=== PATIENT | male | born 1980 | race Caucasian/White ===

== ENCOUNTER 2020-02-12 17:30 | Emergency (ER) | payer OTHER ==
[2020-02-12 18:51] LABS: Basophils % 1.4 % (0-1.3); Hematocrit 42.1 % (39.6-49.0); Lymphocytes % 27.7 % (15.3-44.8); MPV 9.3 fL (7.6-11.3); RBC Red Blood Cell Count 5.47 M/uL (4.33-5.43)
[2020-02-12 19:10] LABS: BUN Blood Urea Nitrogen 16 mg/dL (7-18); Bicarbonate 27 mmol/L (21-32); Glucose Level 255 mg/dL (74-106); NT PRO-BNP 191 pg/mL (<125); Sodium Level 138 mmol/L (136-145); Troponin (Emerg Dept Use Only) 0.02 ng/mL (0.0-0.045)
[2020-02-12] MEDS ORDERED: NA CHLORIDE 0.9% 1,000 ML ONE (20:30)
--- NOTE | 2020-02-12 21:16 | EDPHYS ---
Physician Documentation [facility] Name: Ridge Montgomery Age: 39 yrs Sex: Male : 1980 Arrival Date: 02/12/2020 Time: 17:38 Bed 7 Private MD: ED Physician Archie Munguia HPI: 02/11 18:13 This 39 yrs old Male presents to ER via Ambulatory with complaints of kdr Abnormal EKG. 18:13 The patient had presented to [facility] for RTW clearance and he was noted to have and kdr irregular pulse and an abnormal EKG - he was sent to the ED for further evaluation. He denies any cardiac or pulmonary s/s. He was needing clearance for RTW for a prior ankle injury. Though he had had the ankle injury, he denied any increased immobility that would have suggested a possible PE. He states that he rides bike and walks and has never had any limitation beyond what he normally expected due to retirement lack of exercise and conditioning. He does not have a family history that might suggest a cardiac abnormality. He had been a pack a week smoker until four months ago. He is otherwise not on any medications or have any other risk factors for cardiopulmonary disease. Onset: The symptoms/episode began/occurred at an unknown time. Severity of symptoms: At their worst the symptoms were None - denies any s/s of cardiopulmonary compromise. The patient has not experienced similar symptoms in the past. The patient has been recently seen by a physician: Sarah MIRANDA for RTW. Historical: - Allergies: 17:52 No Known Allergies; ll1 - PMHx: 17:52 None; ll1 - PSHx: 17:52 None; ll1 - Social history:: Smoking status: Patient denies any tobacco usage or history of. Patient/guardian denies using street drugs, tobacco products. ROS: 18:13 Constitutional: Negative for fever, chills, and weight loss, Eyes: Negative for injury, kdr pain, redness, and discharge, ENT: Negative for injury, pain, and discharge, Neck: Negative for injury, pain, and swelling, Cardiovascular: Negative for chest pain, palpitations, and edema, Respiratory: Negative for shortness of breath, cough, wheezing, and pleuritic chest pain, Abdomen/GI: Negative for abdominal pain, nausea, vomiting, diarrhea, and constipation, Back: Negative for injury and pain, : Negative for injury, bleeding, discharge, and swelling, MS/Extremity: Negative for injury and deformity, Skin: Negative for injury, rash, and discoloration, Neuro: Negative for headache, weakness, numbness, tingling, and seizure activity. Psych: Negative for depression, anxiety, suicide ideation, homicidal ideation, and hallucinations, Allergy/Immunology: Negative for hives, rash, and allergies, Endocrine: Negative for neck swelling, polydipsia, polyuria, polyphagia, and marked weight changes, Hematologic/Lymphatic: Negative for swollen nodes, abnormal bleeding, and unusual bruising. Exam: 18:13 Constitutional: This is a well developed, well nourished patient who is awake, alert, kdr and in no acute distress. Head/Face: Normocephalic, atraumatic. Eyes: Pupils equal round and reactive to light, extra-ocular motions intact. Lids and lashes normal. Conjunctiva and sclera are non-icteric and not injected. Cornea within normal limits. Periorbital areas with no swelling, redness, or edema. Neck: Trachea midline, no thyromegaly or masses palpated, and no cervical lymphadenopathy. Supple, full range of motion without nuchal rigidity, or vertebral point tenderness. No Meningismus. Chest/axilla: Normal chest wall appearance and motion. Nontender with no deformity. No lesions are appreciated. Respiratory: Lungs have equal breath sounds bilaterally, clear to auscultation and percussion. No rales, rhonchi or wheezes noted. No increased work of breathing, no retractions or nasal flaring. Abdomen/GI: Soft, non-tender, with normal bowel sounds. No distension or tympany. No guarding or rebound. No evidence of tenderness throughout. Back: No spinal tenderness. No costovertebral tenderness. Full range of motion. Skin: Warm, dry with normal turgor. Normal color with no rashes, no lesions, and no evidence of cellulitis. MS/ Extremity: Pulses equal, no cyanosis. Neurovascular intact. Full, normal range of motion. Neuro: Awake and alert, GCS 15, oriented to person, place, time, and situation. Cranial nerves II-XII grossly intact. Motor strength 5/5 in all extremities. Sensory grossly intact. Cerebellar exam normal. Normal gait. Psych: Awake, alert, with orientation to person, place and time. Behavior, mood, and affect are within normal limits. 18:13 Cardiovascular: Rate: His resting rate was less than 100 but he came tachycardic to 110-120 with exertion. He denies any CP, SOB. Vital Signs: 17:49 BP 156 / 84; Pulse 70; Resp 18; Temp 98.0; Pulse Ox 97% ; Pain 0/10; ll1 18:38 BP 150 / 89; Pulse 51; Resp 18; Temp 98.2; Pulse Ox 97% on R/A; mh5 19:10 BP 118 / 76; Pulse 103; Resp 19; Pulse Ox 95% ; ah 19:55 BP 123 / 63; Pulse 104; Resp 20; Pulse Ox 95% ; ah 20:20 BP 146 / 76; Pulse 106; Resp 18; Pulse Ox 97% ; ea 21:05 BP 131 / 87; Pulse 98; Resp 18; Pulse Ox 97% ; ea MDM: 18:13 Data reviewed: vital signs, nurses notes, lab test result(s), EKG, radiologic studies. kdr Counseling: I had a detailed discussion with the patient and/or guardian regarding: the historical points, exam findings, and any diagnostic results supporting the discharge/admit diagnosis, lab results, radiology results, the need for outpatient follow up. 21:12 Differential Diagnosis arrythmia , dehydration, anxiety. Data interpreted: Pulse tw4 oximetry: Interpretation: normal. Medication response: IVF hydration. Response to treatment: the patient's symptoms have resolved after treatment, the patient is not tachycardic, and as a result, I will discharge patient. Special discussion: I discussed with the patient/guardian in detail that at this point there is no indication for admission to the hospital. It is understood, however, that if the symptoms persist or worsen the patient needs to return immediately for re-evaluation. 21:15 Patient medically screened. 02/11 18:11 Order name: Basic Metabolic Panel; Complete Time: 20:22 kdr 02/11 20:22 Interpretation: Normal except: GLUC 255. 02/11 18:11 Order name: CBC with Diff; Complete Time: 20:22 kdr 02/11 20:22 Interpretation: Normal except: RBC 5.47; HGB 13.5; MCV 77.0; MCH 24.8; RDW 15.7; BASO% tw4 1.4. 02/11 18:11 Order name: Magnesium; Complete Time: 20:22 [facility] 02/11 20:23 Interpretation: Within normal limits: MG 2.0. [facility] 02/11 18:11 Order name: NT PRO-BNP; Complete Time: 20:22 [facility] 02/11 20:23 Interpretation: Normal except: NT PRO-BNP 191. [facility] 02/11 18:11 Order name: Troponin (emerg Dept Use Only); Complete Time: 20:22 [facility] 02/11 20:23 Interpretation: Within normal limits: TROPED 0.02. [facility] 02/11 18:11 Order name: DD; Complete Time: 20:22 [facility] 02/11 20:23 Interpretation: Within normal limits: D-DIMER 341. [facility] 02/11 18:11 Order name: O2 Sat Monitoring; Complete Time: 18:17 [facility] 02/11 18:11 Order name: EKG; Complete Time: 18:12 [facility] 02/11 18:11 Order name: Cardiac monitoring; Complete Time: 18:13 [facility] 02/11 18:11 Order name: EKG - Nurse/Tech; Complete Time: 18:13 [facility] 02/11 18:11 Order name: IV Saline Lock; Complete Time: 19:48 [facility] 02/11 18:11 Order name: Labs collected and sent; Complete Time: 19:48 kdr Administered Medications: 20:41 Drug: NS 0.9% 1000 ml Route: IV; Rate: 1 bolus; Site: left hand; ea 21:32 Follow up: Response: No adverse reaction; IV Status: Completed infusion; IV Intake: ea 500ml Disposition: 02/12/20 21:15 Discharged to Home. Impression: Tachycardia, unspecified. - Condition is Stable. - Discharge Instructions: Palpitations, Sinus Tachycardia. - Medication Reconciliation Form, Thank You Letter, Antibiotic Education, Prescription Opioid Use form. - Follow up: Private Physician; When: Upon discharge from the Emergency Department; Reason: Recheck today's complaints, Continuance of care, Re-evaluation by your physician. - Problem is new. - Symptoms have improved. Signatures: Dispatcher [employer] EDMS Archie Munguia MD MD kdr Marlyn Jackman RN RN Joao Rankin MD MD [facility] Eden Gallagher RN RN ll1 Corrections: (The following items were deleted from the chart) 21:32 21:15 02/12/2020 21:15 Discharged to Home. Impression: Tachycardia, unspecified. ea Condition is Stable. Forms are Medication Reconciliation Form, Thank You Letter, Antibiotic Education, Prescription Opioid Use. Follow up: Private Physician; When: Upon discharge from the Emergency Department; Reason: Recheck today's complaints, Continuance of care, Re-evaluation by your physician. Problem is new. Symptoms have improved. tw4
--- NOTE | 2020-02-12 21:16 | ER ---
Nurse's Notes [facility] Name: Ridge Montgomery Age: 39 yrs Sex: Male : 1980 Arrival Date: 02/12/2020 Time: 17:38 Bed 7 Private MD: Diagnosis: Tachycardia, unspecified Presentation: 02/11 17:49 Chief complaint: Patient states: [employer] sent him here for abnormal EKG. He was in to [facility] get a work release from a ankle injury January 21. His BP was elevated, his pulse and EKG irregular, so they sent him in for eval. No CP or SOB. Coronavirus screen: Proceed with normal triage. Patient denies a cough. Patient denies shortness of breath or difficulty breathing. Patient denies measured and/or subjective temperature greater than 100.4F prior to today's visit. Patient denies travel on a cruise ship or to a country the [facility] currently lists as an affected area. Patient denies contact with known and/or suspected case of COVID-19. Ebola Screen: Patient denies travel to an Ebola-affected area in the 21 days before illness onset. Initial Sepsis Screen: Does the patient meet any 2 criteria? No. Patient's initial sepsis screen is negative. Does the patient have a suspected source of infection? No. Patient's initial sepsis screen is negative. Risk Assessment: Do you want to hurt yourself or someone else? Patient reports no desire to harm self or others. Onset of symptoms is unknown. 17:49 Method Of Arrival: Ambulatory [facility] 17:49 Acuity: EMIL 3 ll1 Historical: - Allergies: 17:52 No Known Allergies; ll1 - PMHx: 17:52 None; ll1 - PSHx: 17:52 None; ll1 - Social history:: Smoking status: Patient denies any tobacco usage or history of. Patient/guardian denies using street drugs, tobacco products. Screenin:02 Abuse screen: Denies threats or abuse. Nutritional screening: No deficits noted. Tuberculosis screening: No symptoms or risk factors identified. Fall Risk None identified. Assessment: 17:59 General: Appears in no apparent distress. Behavior is calm, cooperative. Pain: Denies pain. Neuro: Level of Consciousness is awake, alert, Oriented to person, place, time, situation. Cardiovascular: Reports abnormal EKG from MD office Denies chest pain, palpitations, shortness of breath, Heart tones S1 S2 present Capillary refill < 3 seconds Patient's skin is warm and dry. Respiratory: Airway is patent Respiratory effort is even, unlabored, Respiratory pattern is regular, symmetrical, Breath sounds are clear bilaterally. GI: Abdomen is obese, Patient currently denies nausea. : No signs and/or symptoms were reported regarding the genitourinary system. EENT: No signs and/or symptoms were reported regarding the EENT system. Derm: No signs and/or symptoms reported regarding the dermatologic system. Musculoskeletal: No signs and/or symptoms reported regarding the musculoskeletal system. 19:00 Reassessment: Pt lying in bed with resp even and unlabored. No distress noted. Awaiting lab results. 20:21 Reassessment: Patient and/or family updated on plan of care and expected duration. Pain ea level reassessed. Patient is alert, oriented x 3, equal unlabored respirations, skin warm/dry/pink. Patient denies pain at this time. 21:05 Reassessment: Patient and/or family updated on plan of care and expected duration. Pain ea level reassessed. Patient is alert, oriented x 3, equal unlabored respirations, skin warm/dry/pink. Patient denies pain at this time. 21:31 Reassessment: Patient and/or family updated on plan of care and expected duration. Pain ea level reassessed. Patient is alert, oriented x 3, equal unlabored respirations, skin warm/dry/pink. Discharge instruction given to patient, verbalized the understaging of instruction . Pt left ED ambulatory tolerating well Patient denies pain at this time. Vital Signs: 17:49 BP 156 / 84; Pulse 70; Resp 18; Temp 98.0; Pulse Ox 97% ; Pain 0/10; ll1 18:38 BP 150 / 89; Pulse 51; Resp 18; Temp 98.2; Pulse Ox 97% on R/A; mh5 19:10 BP 118 / 76; Pulse 103; Resp 19; Pulse Ox 95% ; ah 19:55 BP 123 / 63; Pulse 104; Resp 20; Pulse Ox 95% ; ah 20:20 BP 146 / 76; Pulse 106; Resp 18; Pulse Ox 97% ; ea 21:05 BP 131 / 87; Pulse 98; Resp 18; Pulse Ox 97% ; ea ED Course: 17:38 Patient arrived in ED. mr 17:42 Archie Munguia MD is Attending Physician. kdr 17:52 Triage completed. ll1 17:52 Arm band placed on Patient placed in an exam room, on a stretcher. ll1 17:54 Mary Vasquez, RN is Primary Nurse. 18:03 Patient has correct armband on for positive identification. Bed in low position. Call light in reach. school lunch monitor on. Pulse ox on. NIBP on. 18:14 EKG done, by ED staff, reviewed by Archie Munguia MD. [facility] 18:25 Missed attempt(s): 20 gauge in right wrist. Bleeding controlled, band aid applied, jl7 catheter tip intact. 18:30 Missed attempt(s): 20 gauge in right forearm. Bleeding controlled, band aid applied, jl7 catheter tip intact. 18:43 Missed attempt(s): 22 gauge in left antecubital area. Bleeding controlled, band aid ah applied, catheter tip intact. 18:50 Initial lab(s) drawn, by pr, sent to lab. Inserted saline lock: 22 gauge in left hand, jl7 using aseptic technique. Blood collected. 21:28 IV discontinued, intact, bleeding controlled, No redness/swelling at site. Pressure ea dressing applied. 21:31 No provider procedures requiring assistance completed. ea Administered Medications: 20:41 Drug: NS 0.9% 1000 ml Route: IV; Rate: 1 bolus; Site: left hand; ea 21:32 Follow up: Response: No adverse reaction; IV Status: Completed infusion; IV Intake: ea 500ml Intake: 21:32 IV: 500ml; Total: 500ml. ea Outcome: 21:15 Discharge ordered by . tw4 21:32 Discharged to home ambulatory. ea 21:32 Condition: stable 21:32 Discharge instructions given to patient, Instructed on discharge instructions, follow up and referral plans. Demonstrated understanding of instructions, follow-up care. 21:32 Patient left the ED. ea Signatures: Archie Munguia MD MD kdr Tiffany Montoya Maria 5 Antonio Martni RN RN jl7 Marlyn Jackman RN RN ea Wadley, Terrence, MD MD 4 Mary Vasquez, RN RN Eden Mittal RN RN 1
[2020-02-12 21:40] VITALS: TEMP 98.2
[2020-02-12 21:48] VITALS: O2SAT 97
[2020-02-12 21:49] VITALS: BP 131/87
--- NOTE | 2020-02-13 06:30 | EKG ---
Test Date: 2020-02-12 Test Time: 17:53:34 Box Gluer: HUSSAIN MEASUREMENT RESULTS: Intervals: Rate: 100 TN: 174 QRSD: 102 QT: 354 QTc: 456 [place]: P: 66 TN: 174 QRS: -6 T: 82 INTERPRETIVE STATEMENTS: Sinus rhythm with occasional premature ventricular complexes Moderate voltage criteria for LVH, may be normal variant Nonspecific T wave abnormality Abnormal ECG No previous ECG available for comparison Electronically Signed On 02-13-20 06:29:41 CDT by Melecio Rodriguez
--- NOTE | 2020-02-13 14:42 | EKG ---
Test Date: 2020-02-12 Test Time: 17:54:29 [employer] Representative: HUSSAIN MEASUREMENT RESULTS: Intervals: Rate: 102 CO: 176 QRSD: 96 QT: 342 QTc: 445 [place]: P: 58 CO: 176 QRS: -4 T: 59 INTERPRETIVE STATEMENTS: Sinus tachycardia with occasional premature ventricular complexes Minimal voltage criteria for LVH, may be normal variant Nonspecific T wave abnormality Abnormal ECG Compared to ECG 02/12/2020 17:53:34 Sinus rhythm no longer present T-wave abnormality still present Electronically Signed On 02-13-20 14:41:05 CDT by Melecio Rodriguez
== END 2020-02-12 21:32 | disposition home or self-care (01) ==
LOC: ER 17:30
DX: R00.0 Tachycardia, unspecified (principal)
CPT/HCPCS: 93005 ×2; 85025; 80048; 36415; 83735; 85379; 84484; 83880; 96360; 99284; J7030